=== PATIENT | female | born 1955 | race Caucasian/White ===

== ENCOUNTER → 2016-12-28 | Outpatient (CLI) | payer BC | LOC: FIMAGING 08:47 | DX: Z12.31 Encounter for screening mammogram for malignant neoplasm of breast (principal) | CPT/HCPCS: G0202 ==

== ENCOUNTER → 2018-01-04 | Outpatient (CLI) | payer BC, OTHER | LOC: FIMAGING 10:07 | DX: Z12.31 Encounter for screening mammogram for malignant neoplasm of breast (principal) ==